=== PATIENT | male | born 1960 | race Caucasian/White ===

== ENCOUNTER 2016-07-07 09:00 | Outpatient (CLI) | payer MEDICAID | END 2016-07-07 09:01 | disposition home or self-care (01) | DX: I10 Essential (primary) hypertension (principal); E10.9 Type 1 diabetes mellitus without complications; H35.20 Other non-diabetic proliferative retinopathy, unspecified eye ==

== ENCOUNTER 2016-12-25 23:21 | Outpatient (CLI) | payer MEDICAID | END 2016-12-25 23:22 | disposition EMS.NT | LOC: EMS 23:21 | PROVIDERS: ATTEND Surgery | DX: Z04.1 Encounter for examination and observation following transport accident (principal); E16.2 Hypoglycemia, unspecified; V47.0XXA Car driver injured in collision with fixed or stationary object in nontraffic accident, initial encounter; Y92.008 Other place in unspecified non-institutional (private) residence as the place of occurrence of the external cause ==

== ENCOUNTER 2017-02-19 15:40 | Outpatient (CLI) | payer MEDICAID | END 2017-02-19 15:41 | disposition home or self-care (01) | LOC: LAB.R 15:40 | PROVIDERS: ATTEND Family Medicine | DX: E10.622 Type 1 diabetes mellitus with other skin ulcer (principal) | CPT/HCPCS: 87070; 87077; 87205 ==

== ENCOUNTER 2017-02-26 08:55 | Outpatient (CLI) | payer MEDICAID ==
[2017-02-26 13:29] LABS: ALBUMIN/GLOBULIN RATIO 1.3 (1.0-2.2); BUN - BLOOD UREA NITROGEN 13 mg/dL (6-20); CALCIUM 9.3 mg/dL (8.5-10.3); CARBON DIOXIDE - CO2 27 mmol/L (21-32); CHLORIDE 102 mmol/L (101-111); CHOL/HDL RATIO 2.1 (<5.0); CHOLESTEROL 135 mg/dL; CREATININE 1.1 mg/dL (0.6-1.2); GFR - MDRD 69 (>89); GLUCOSE 195 mg/dL (70-100); HDL CHOLESTEROL 64 mg/dL; POTASSIUM 4.4 mmol/L (3.5-5.0); SODIUM 136 mmol/L (135-145); TOTAL PROTEIN 7.2 g/dL (6.7-8.2); TRIGLYCERIDES 40 mg/dL; VLDL CHOLESTEROL 8 mg/dL
[2017-02-26 13:42] LABS: HEMOGLOBIN A1C 0.67 g/dL
== END 2017-02-26 08:56 | disposition home or self-care (01) ==
LOC: LAB.WCP 08:55
PROVIDERS: ATTEND Family Medicine
DX: E10.9 Type 1 diabetes mellitus without complications (principal); E78.5 Hyperlipidemia, unspecified
CPT/HCPCS: 36415; 80053; 80061; 82043; 83036

== ENCOUNTER 2017-05-07 12:08 | Outpatient (CLI) | payer MEDICAID | END 2017-05-07 12:09 | disposition EMS.NT | LOC: EMS 12:08 | PROVIDERS: ATTEND Surgery | DX: E11.649 Type 2 diabetes mellitus with hypoglycemia without coma (principal); W01.0XXA Fall on same level from slipping, tripping and stumbling without subsequent striking against object, initial encounter; Y92.414 Local residential or business street as the place of occurrence of the external cause ==

== ENCOUNTER 2017-06-22 16:05 | Outpatient (CLI) | payer MEDICAID | END 2017-06-22 16:06 | disposition EMS.NT | LOC: EMS 16:05 | PROVIDERS: ATTEND Surgery | DX: R73.09 Other abnormal glucose (principal); R41.82 Altered mental status, unspecified ==

== ENCOUNTER 2017-07-28 17:00 | Outpatient (CLI) | payer MEDICAID | END 2017-07-28 17:01 | disposition EMS.NT | LOC: EMS 17:00 | PROVIDERS: ATTEND Surgery | DX: R46.4 Slowness and poor responsiveness (principal); R73.09 Other abnormal glucose ==

== ENCOUNTER 2017-08-01 17:13 | Outpatient (CLI) | payer MEDICAID | END 2017-08-01 17:14 | disposition EMS.NT | LOC: EMS 17:13 | PROVIDERS: ATTEND Surgery | DX: R46.4 Slowness and poor responsiveness (principal); R73.09 Other abnormal glucose ==

== ENCOUNTER 2017-08-18 16:56 | Outpatient (CLI) | payer MEDICAID ==
[2017-08-18 13:35] LABS: HB2 TOTAL 15.3 g/dL; HEMOGLOBIN A1C 0.86 g/dL; HEMOGLOBIN A1C % 7.3 % (4.6-6.2)
[2017-08-18 14:00] LABS: ALBUMIN 4.2 g/dL (3.2-5.5); ALBUMIN/GLOBULIN RATIO 1.4 (1.0-2.2); BILIRUBIN,TOTAL 1.2 mg/dL (0.2-1.0); CALCIUM 9.3 mg/dL (8.5-10.3); CREATININE 0.9 mg/dL (0.6-1.2); TOTAL PROTEIN 7.2 g/dL (6.7-8.2)
== END 2017-08-18 16:57 | disposition home or self-care (01) ==
LOC: LAB.WCP 16:56
PROVIDERS: ATTEND Family Medicine
DX: E10.622 Type 1 diabetes mellitus with other skin ulcer (principal); I10 Essential (primary) hypertension; Z12.5 Encounter for screening for malignant neoplasm of prostate
CPT/HCPCS: 36415; 80053; 83036; 84153

== ENCOUNTER 2017-09-22 15:25 | Outpatient (CLI) | payer MEDICAID | END 2017-09-22 15:26 | disposition EMS.NT | LOC: EMS 15:25 | PROVIDERS: ATTEND Surgery | DX: R46.89 Other symptoms and signs involving appearance and behavior (principal) ==

== ENCOUNTER 2017-10-03 14:21 | Outpatient (CLI) | payer MEDICAID | END 2017-10-03 14:22 | disposition EMS.NT | LOC: EMS 14:21 | PROVIDERS: ATTEND Surgery | DX: R41.82 Altered mental status, unspecified (principal); R73.09 Other abnormal glucose ==

== ENCOUNTER 2017-11-16 12:06 | Outpatient (CLI) | payer MEDICAID | END 2017-11-16 12:07 | disposition EMS.NT | LOC: EMS 12:06 | PROVIDERS: ATTEND Surgery | DX: R46.4 Slowness and poor responsiveness (principal); R61 Generalized hyperhidrosis; R73.09 Other abnormal glucose ==

== ENCOUNTER 2018-06-10 11:52 | Outpatient (CLI) | payer MEDICAID | END 2018-06-10 11:53 | disposition EMS.NT | LOC: EMS 11:52 | PROVIDERS: ATTEND Surgery | DX: R73.09 Other abnormal glucose (principal) ==

== ENCOUNTER 2018-12-15 08:00 | Outpatient (CLI) | payer MEDICAID ==
[2018-12-15 19:56] LABS: HB2 TOTAL 13.6 g/dL; HEMOGLOBIN A1C 0.62 g/dL; HEMOGLOBIN A1C % 6.3 % (4.6-6.2)
[2018-12-15 20:01] LABS: ALBUMIN 4.2 g/dL (3.2-5.5); ALBUMIN/GLOBULIN RATIO 1.4 (1.0-2.2); CALCIUM 9.4 mg/dL (8.5-10.3); CREATININE 0.9 mg/dL (0.6-1.2); TOTAL PROTEIN 7.3 g/dL (6.7-8.2)
== END 2018-12-15 23:59 | disposition home or self-care (01) ==
LOC: LAB.WCP 08:00
PROVIDERS: ATTEND Family Medicine
DX: I10 Essential (primary) hypertension (principal); E10.622 Type 1 diabetes mellitus with other skin ulcer; H35.20 Other non-diabetic proliferative retinopathy, unspecified eye
CPT/HCPCS: 36415; 80053; 82043; 83036

== ENCOUNTER 2019-05-16 07:00 | Outpatient (CLI) | payer MEDICAID ==
[2019-05-16 17:04] LABS: CALCIUM 9.1 mg/dL (8.5-10.3); CREATININE 0.9 mg/dL (0.6-1.2)
[2019-05-16 17:05] LABS: HB2 TOTAL 12.7 g/dL; HEMOGLOBIN A1C 0.66 g/dL; HEMOGLOBIN A1C % 6.9 % (4.6-6.2)
[2019-05-16 17:11] LABS: CREATININE,URINE 25.1 mg/dL
[2019-05-16 17:12] LABS: MICROALBUMIN,URINE < 0.2 mg/dL (0-300.0)
== END 2019-05-16 23:59 | disposition home or self-care (01) ==
LOC: LAB.WCP 07:00
PROVIDERS: ATTEND Family Medicine
DX: E10.69 Type 1 diabetes mellitus with other specified complication (principal); E10.620 Type 1 diabetes mellitus with diabetic dermatitis; E10.622 Type 1 diabetes mellitus with other skin ulcer
CPT/HCPCS: 36415; 80048; 82043; 82570; 83036

== ENCOUNTER 2019-05-22 11:49 | Outpatient (CLI) | payer MEDICAID | END 2019-05-22 11:50 | disposition EMS.NT | LOC: EMS 11:49 | PROVIDERS: ATTEND Surgery | DX: R41.0 Disorientation, unspecified (principal); R73.09 Other abnormal glucose ==

== ENCOUNTER 2019-10-16 17:54 | Outpatient (CLI) | payer MEDICAID | END 2019-10-16 17:55 | disposition EMS.NT | LOC: EMS 17:54 | PROVIDERS: ATTEND Surgery | DX: R46.89 Other symptoms and signs involving appearance and behavior (principal); R73.09 Other abnormal glucose ==

== ENCOUNTER 2019-12-26 18:32 | Outpatient (CLI) | payer MEDICAID | END 2019-12-26 18:33 | disposition EMS.NT | LOC: EMS 18:32 | PROVIDERS: ATTEND Surgery | DX: R46.4 Slowness and poor responsiveness (principal); R73.09 Other abnormal glucose ==

== ENCOUNTER 2020-01-16 19:15 | Outpatient (CLI) | payer MEDICAID | END 2020-01-16 19:16 | disposition EMS.NT | LOC: EMS 19:15 | PROVIDERS: ATTEND Surgery | DX: R41.82 Altered mental status, unspecified (principal); R73.09 Other abnormal glucose ==

== ENCOUNTER 2020-11-26 18:18 | Outpatient (CLI) | payer MEDICAID | END 2020-11-26 18:19 | disposition EMS.NT | LOC: EMS 18:18 | DX: R40.4 Transient alteration of awareness (principal) ==

== ENCOUNTER 2021-04-03 08:57 | Outpatient (CLI) | payer MEDICAID ==
[2021-04-03 12:18] LABS: MICROALBUM/CREATININE RATIO,UR 12.8 ug/mg (<30.0); MICROALBUMIN,URINE 3.7 mg/dL (0-300.0)
[2021-04-03 12:29] LABS: CALCIUM 9.5 mg/dL (8.5-10.3); POTASSIUM 4.4 mmol/L (3.5-5.0)
[2021-04-03 12:50] LABS: ESTIMATED AVERAGE GLUCOSE 169 mg/dL (70-100); HEMOGLOBIN A1c% 7.5 % (4.27-6.07)
== END 2021-04-03 23:59 | disposition home or self-care (01) ==
LOC: LAB.WCP 08:57
PROVIDERS: ATTEND Internal Medicine
DX: E10.9 Type 1 diabetes mellitus without complications (principal)
CPT/HCPCS: 36415; 80048; 82043; 82570; 83036

== ENCOUNTER 2021-04-16 19:48 | Outpatient (CLI) | payer MEDICAID | END 2021-04-16 19:49 | disposition EMS.NT | LOC: EMS 19:48 | DX: R61 Generalized hyperhidrosis (principal) ==

== ENCOUNTER 2021-05-14 12:28 | Outpatient (CLI) | payer MEDICAID | END 2021-05-14 12:29 | disposition EMS.NT | LOC: EMS 12:28 | DX: S01.01XA Laceration without foreign body of scalp, initial encounter (principal); W18.39XA Other fall on same level, initial encounter; Y93.01 Activity, walking, marching and hiking; Y92.480 Sidewalk as the place of occurrence of the external cause; E11.649 Type 2 diabetes mellitus with hypoglycemia without coma; Z79.4 Long term (current) use of insulin ==

== ENCOUNTER → 2021-12-21 | Outpatient (CLI) | payer MEDICAID | END | disposition left against medical advice (07) | LOC: EMS 17:33 | DX: E11.649 Type 2 diabetes mellitus with hypoglycemia without coma (principal); Z79.4 Long term (current) use of insulin ==

== ENCOUNTER 2022-12-11 12:36 | Outpatient (CLI) | payer MEDICAID | END 2022-12-11 23:59 | disposition left against medical advice (07) | LOC: EMS 12:36 | DX: E11.649 Type 2 diabetes mellitus with hypoglycemia without coma (principal); Z79.4 Long term (current) use of insulin ==

== ENCOUNTER 2022-12-12 11:56 | Outpatient (CLI) | payer MEDICAID | END 2022-12-12 23:59 | disposition left against medical advice (07) | LOC: EMS 11:56 | DX: E11.649 Type 2 diabetes mellitus with hypoglycemia without coma (principal); Z79.4 Long term (current) use of insulin ==

== ENCOUNTER 2023-02-11 12:58 | Outpatient (CLI) | payer MEDICAID | END 2023-02-11 23:59 | disposition EMS.NT | LOC: EMS 12:58 | DX: E11.649 Type 2 diabetes mellitus with hypoglycemia without coma (principal) ==

== ENCOUNTER 2023-04-06 14:57 | Outpatient (CLI) | payer MEDICAID | END 2023-04-06 14:58 | disposition EMS.NT | LOC: EMS 14:57 | DX: E11.649 Type 2 diabetes mellitus with hypoglycemia without coma (principal); Z79.4 Long term (current) use of insulin ==

== ENCOUNTER 2023-08-02 12:51 | Outpatient (CLI) | payer MEDICAID | END 2023-08-02 12:52 | disposition EMS.NT | LOC: EMS 12:51 | DX: E10.649 Type 1 diabetes mellitus with hypoglycemia without coma (principal) ==